=== PATIENT | male | born 1960 | race Caucasian/White ===

== ENCOUNTER 2022-08-18 07:38 | Outpatient (CLI) | payer OTHER ==
[2022-08-18 08:03] LABS: BASOPHILS % (AUTO) 0.5 %; EOSINOPHILS # (AUTO) 0.3 10^3/uL (0.0-0.7); EOSINOPHILS % (AUTO) 4.9 %; HGB - HEMOGLOBIN 16.4 g/dL (14.0-18.0); LYMPHOCYTES # (AUTO) 1.3 10^3/uL (1.5-3.5); LYMPHOCYTES % (AUTO) 23.4 %; MEAN CORPUSCULAR HEMOGLOBIN 31.1 pg (27.0-31.0); MEAN CORPUSCULAR HGB CONC 34.2 g/dL (32.0-36.0); MEAN CORPUSCULAR VOLUME 90.9 fL (80.0-94.0); MEAN PLATELET VOLUME 9.4 fL (7.4-11.4); MONOCYTES # (AUTO) 0.6 10^3/uL (0.0-1.0); MONOCYTES % (AUTO) 10.6 %; NEUTROPHILS # (AUTO) 3.4 10^3/uL (1.5-6.6); NEUTROPHILS % (AUTO) 60.4 %; PLT - PLATELET COUNT 211 10^3/uL (130-450); RED BLOOD COUNT 5.28 10^6/uL (4.70-6.10); RED CELL DISTRIBUTION WIDTH 12.1 % (12.0-15.0); WHITE BLOOD COUNT 5.7 x10^3/uL (4.8-10.8)
[2022-08-18 08:22] LABS: ALBUMIN/GLOBULIN RATIO 1.9 (1.0-2.2); ALKALINE PHOSPHATASE 64 IU/L (42-121); ALT ALANINE AMINOTRANSFERASE 24 IU/L (10-60); AST ASPARTATE AMINOTRANSFERASE 22 IU/L (10-42); BILIRUBIN,TOTAL 1.1 mg/dL (0.2-1.0); BUN - BLOOD UREA NITROGEN 19 mg/dL (6-20); CALCIUM 9.8 mg/dL (8.5-10.3); CARBON DIOXIDE - CO2 28 mmol/L (21-32); CHLORIDE 103 mmol/L (101-111); CHOL/HDL RATIO 2.2 (<5.0); CHOLESTEROL 134 mg/dL; CREATININE 1.2 mg/dL (0.6-1.2); GFR - MDRD 61 (>89); GLUCOSE 108 mg/dL (70-100); HDL CHOLESTEROL 61 mg/dL; LDL CHOLESTEROL,CALCULATED 62 mg/dL; POTASSIUM 4.4 mmol/L (3.5-5.0); SODIUM 142 mmol/L (135-145); TOTAL PROTEIN 7.6 g/dL (6.7-8.2); TRIGLYCERIDES 56 mg/dL; URIC ACID 7.4 mg/dL (2.6-7.2); VLDL CHOLESTEROL 11 mg/dL
[2022-08-18 08:28] LABS: THYROID STIMULATING HORMONE 1.15 uIU/mL (0.34-5.60)
[2022-08-18 09:08] LABS: PSA FREE 0.59 ng/mL (0.16-2.81)
[2022-08-18 09:09] LABS: PSA TOTAL 2.43 ng/mL (0.000-2.000)
== END 2022-08-18 07:39 | disposition home or self-care (01) ==
LOC: LAB 07:38
PROVIDERS: ATTEND Nurse Practitioner Family
DX: E78.5 Hyperlipidemia, unspecified (principal); I10 Essential (primary) hypertension; M10.9 Gout, unspecified; Z12.5 Encounter for screening for malignant neoplasm of prostate
CPT/HCPCS: 36415; 80053; 80061; 83721; 84153; 84154; 84443; 84550; 85025

== ENCOUNTER 2023-11-24 15:07 | Outpatient (CLI) | payer OTHER ==
--- NOTE | 2023-11-24 17:30 | XRAY Report ---
PROCEDURE: Hand 3+V BL INDICATIONS: PAIN OF BILATERAL HANDS TECHNIQUE: 3 views of the hand(s) acquired. COMPARISON: None. FINDINGS: Bones: No fractures or dislocations. Normal alignment. Joint spaces are maintained. No osseous erosi on or ankylosis. No suspicious bony lesions. Soft tissues: No suspicious soft tissue calcifications or masses. IMPRESSION: No acute bony abnormality. Joint spaces are maintained. Reviewed by: Rachana Echeverria MD on 11/24/2023 5:29 PM PST Approved by: Rachana Echeverria MD on 11/24/2023 5:29 PM PST Station ID: [id number]
== END 2023-11-24 15:08 | disposition home or self-care (01) ==
LOC: DI.S 15:07
PROVIDERS: ATTEND Nurse Practitioner Family
DX: M79.641 Pain in right hand (principal); M79.642 Pain in left hand

== ENCOUNTER 2024-07-10 15:28 | Outpatient (CLI) | payer OTHER ==
--- NOTE | 2024-07-11 12:21 | MRI Report ---
Shoulder LT WO CLINICAL HISTORY: 64 years of age, Male, L SHOULDER PAIN. Comparison: No priors available Technique: Multiplanar, multisequence MRI of the left shoulder was performed without intravenous con trast. IV Contrast: Not Administered. Findings: Osseous acromial outlet: Moderate degenerative changes of the acromioclavicular joint. Type I acromio n. No os acromiale. Trace subacromial/subdeltoid bursitis. Rotator cuff muscles and tendons: Mild tendinosis of the supraspinatus and infraspinatus, without tea r. The teres minor is unremarkable. Mild tendinosis of the subscapularis with low-grade articular cris ed tear of the superior fibers. Muscles are intact without evidence of atrophy or edema. Labral and capsular structures: The visualized labrum appears intact on limited non-arthrogram sequen nalini. No paralabral cyst. Thickening of the inferior glenohumeral ligament, with the obscuration of fa t at the rotator interval, which can be seen in the setting of adhesive capsulitis. Biceps tendon and anchor: Moderate tenosynovitis of the extra-articular biceps tendon. Moderate tendi nosis of the intra-articular biceps tendon. Osseous and cartilaginous structures: No fracture or dislocation. No focal chondral defects. Miscellaneous: No significant glenohumeral effusion. Mild subcoracoid bursitis. No intra-articular bodies. The remaining muscles are normal in bulk without evidence of atrophy or edema. IMPRESSION: 1.Moderate degenerative changes of the acromioclavicular joint. 2.Mild tendinosis of supraspinatus and infraspinatus, without tear. 3.Low-grade tear of the subscapularis. 4.Findings suggestive of adhesive capsulitis. 5.Moderate tenosynovitis of the extra-articular biceps tendon. Moderate tendinosis of the intra-artic ular biceps tendon. Reviewed by: Annie Lawson MD on 07/11/2024 12:20 PM PDT Approved by: Annie Lawson MD on 07/11/2024 12:20 PM PDT Station ID: [id number]
== END 2024-07-10 15:29 | disposition home or self-care (01) ==
LOC: DI 15:28
PROVIDERS: ATTEND Nurse Practitioner Family
DX: M19.012 Primary osteoarthritis, left shoulder (principal); M75.82 Other shoulder lesions, left shoulder; M75.112 Incomplete rotator cuff tear or rupture of left shoulder, not specified as traumatic; M65.9 Synovitis and tenosynovitis, unspecified

== ENCOUNTER 2024-07-10 15:31 | Outpatient (CLI) | payer OTHER ==
--- NOTE | 2024-07-11 12:37 | XRAY Report ---
Shoulder 2+V LT HISTORY: 64 years of age, L SHOULDER PAIN TECHNIQUE: Shoulder 2+V LT COMPARISON: None. FINDINGS/IMPRESSION: No acute fracture or dislocation. Joint spaces are well maintained. Reviewed by: Annie Lawson MD on 07/11/2024 12:36 PM PDT Approved by: Annie Lawson MD on 07/11/2024 12:36 PM PDT Station ID: [id number]
== END 2024-07-10 15:32 | disposition home or self-care (01) ==
LOC: DI 15:31
PROVIDERS: ATTEND Nurse Practitioner Family
DX: M25.512 Pain in left shoulder (principal)